=== PATIENT | female | born 1960 | race Two or more races ===

== ENCOUNTER 2019-10-21 00:58 | Emergency (ER) | payer OTHER ==
[~2019-10-21] VITALS: Ht 170.2 cm; Wt 63.5 kg
--- NOTE | 2019-10-21 01:23 | NUR ---
PATIENT WAS MSE BY DR VAUGHN IN ROOM 02B. PATIENT A & O X4.
[2019-10-21] MEDS ORDERED: OXYCODONE/APAP 5-325 MG TABLET PO ONE (01:30)
[2019-10-21] MEDS ORDERED: OXYCODONE/APAP 5-325 MG TABLET ONE (01:33)
[2019-10-21 02:45] VITALS: BP 135/77
--- NOTE | 2019-10-21 02:45 | NUR ---
Patient discharged to home in stable condition. Written and verbal after care instructions given. Patient verbalizes understanding of instructions. Dr Valdez made patient aware of test results.
== END 2019-10-21 02:46 | disposition home or self-care (01) ==
LOC: ER 00:58
DX: S20.219A Contusion of unspecified front wall of thorax, initial encounter (principal); F10.10 Alcohol abuse, uncomplicated; F12.10 Cannabis abuse, uncomplicated; W17.89XA Other fall from one level to another, initial encounter; Y93.89 Activity, other specified; V00-Y99 External causes of morbidity; Y99.8 Other external cause status
CPT/HCPCS: 71045; 71120; A4663